=== PATIENT | male | born 1940 | race Caucasian/White ===

== ENCOUNTER 2019-01-18 10:36 | Inpatient (IN) ==
--- NOTE | 2018-11-17 16:25 | PAT Medication Instructions ---
Medication Instructions Date of Service November 17, 2018 Home Medications kuaizjp-kohnwumokltis-fyzqavxe 2 tab PO BID atorvastatin [Lipitor] 40 mg PO QAM candesartan 16 mg PO QAM docusate sodium [Colace] 100 mg PO QAM finasteride 5 mg PO QAM metformin 850 mg PO QAM metoprolol succinate 25 mg PO QAM ranitidine HCl 150 mg PO QAM ASK your surgeon for instructions [id number]-wifuxcjbncbwq-yacjnntr 2 tab PO BID DO NOT take the morning of surgery candesartan 16 mg PO QAM docusate sodium [Colace] 100 mg PO QAM finasteride 5 mg PO QAM metformin 850 mg PO QAM Take morning of surgery With a small sip of water, OTHERWISE NOTHING TO EAT OR DRINK AFTER MIDNIGHT: atorvastatin [Lipitor] 40 mg PO QAM metoprolol succinate 25 mg PO QAM ranitidine HCl 150 mg PO QAM Other Notes If you have any questions please call us at [phone] or [phone] or or [phone]
--- NOTE | 2018-11-18 13:46 | Anesthesiology Consultation ---
Date of Service November 18, 2018 Assessment & Plan (1) Encounter for pre-operative examination: Chart Review Chart Review: Acceptable Risk for Surgery and Patient seen in Pre Admission Testing Teaching & Discussion Instructed NPO after midnight before surgery, except medications with 15 cc of water. Medication instructions provided according to the PAT guidelines. History Surgery Operation Date: 12/09/18 07:45 Proposed Procedures p L3-L5 Decompression and Fusion - Nik Viera, Height/Weight Height: 5 ft 10 in Weight: 108.7 kg Allergies Allergy/AdvReac Type Severity Reaction Status Date / Time No Known Allergies Allergy Verified 11/11/18 07:45 Medications Home Medications Medication Instructions Recorded Confirmed Last Taken ihrmetq-pndzbevegickq-mqpjfdkk 2 tab PO BID 11/11/18 11/11/18 Unknown [Excedrin Extra Strength] atorvastatin [Lipitor] 40 mg PO QAM 11/11/18 11/11/18 Unknown candesartan 16 mg PO QAM 11/11/18 11/11/18 Unknown docusate sodium [Colace] 100 mg PO QAM 11/11/18 11/11/18 Unknown finasteride 5 mg PO QAM 11/11/18 11/11/18 Unknown metformin 850 mg PO QAM 11/11/18 11/11/18 Unknown metoprolol succinate 25 mg PO QAM 11/11/18 11/11/18 Unknown ranitidine HCl 150 mg PO QAM 11/11/18 11/11/18 Unknown Past Medical History Medical History BPH (benign prostatic hyperplasia) Diabetes mellitus, type 2 Essential tremor right arm- states has not seen neurologist but told by PCP may have the beginning stages of Parkinson GERD (gastroesophageal reflux disease) High cholesterol Hypertension Spinal stenosis Trigger finger of right hand Weakness both legs - more in right than left- no issues with walking, but has trouble getting up from chair Past Surgical History Surgical History H/O hand surgery Trigger finger release 02/2018 Hx of tonsillectomy Hx of umbilical hernia repair Past Anesthesia History No Hx of Anesthesia Complications and No Family Hx of Anesthesia Complications History of PONV No Motion Sickness Screening History of Motion Sickness: No Social History Smoking Status: Former smoker tobacco type: cigars Do You Dip or Chew Tobacco: No Smoking End Date: 1972 Hx Alcohol Use: Yes Alcohol type: beer alcohol intake frequency: 0-2 drinks per day (2/day) Hx Substance Use: No Exercise / Class Metabolic Activity III < 4 Walking/Shop/Light housework (Walks 50yards to mailbox BID, denies CP or SOB with ambulation) Review of Systems Pt denies any recent chest pain, shortness of breath, palpitations, cough, fever or URI. Physical Exam Vital Signs BP: 124/75 P: 66bpm SPO2: 96% RA T: 97.7 F R: 18 Constitutional + obese RUE/hand continuous tremor. ENMT Mouth: + dental restorations (crown); no chipped teeth and no loose teeth Thyromental Distance: > or= 3.5 Finger Breadths (3.5) Mallampati Class: III Neck + short neck, + thick neck, + limited neck extension and + facial hair (mustache) Respiratory normal respiratory effort Auscultation: lungs clear to auscultation bilaterally Cardiovascular Rate/Rhythm: regular rate and regular rhythm Heart Sounds: no murmur Vessels: no carotid bruit Testing Electrocardiogram Date: 02/24/18 Findings: + SB @ (59) Left axis deviation. Inferior infarct, age undetermined. No significant change from EKG 08/13/16. Chest X-Ray Date: 02/24/18 Findings: + NAD Laboratory Results 11/18/18 14:03 11/18/18 14:03 Blood Type O Positive 11/18/18 14:03 Antibody Screen NEGATIVE 11/18/18 14:03 PT 10.8 Seconds (9.0-12.0) 11/18/18 14:03 INR 1.1 (0.9-1.1) 11/18/18 14:03 APTT 27.4 Seconds (21.0-31.0) 11/18/18 14:03 Hemoglobin A1c 6.2 % (4.5-5.6) H 11/18/18 14:03 Urine Color Yellow 11/18/18 14:03 Urine Appearance Clear (Clear) 11/18/18 14:03 Urine pH 5.0 (4.5-7.5) 11/18/18 14:03 Ur Specific [place] 1.013 (1.000-1.030) 11/18/18 14:03 Urine Protein Negative (Negative) 11/18/18 14:03 Urine Glucose (UA) Negative (Negative) 11/18/18 14:03 Urine Ketones Negative (Negative) 11/18/18 14:03 Urine Nitrite Negative (Negative) 11/18/18 14:03 Ur Leukocyte Esterase Negative (Negative) 11/18/18 14:03
[2018-11-18 14:35] LABS: Basophils # (auto) 0.02 K/uL (0-0.2); Basophils % (auto) 0.2 %; Eosinophils # (auto) 0.18 K/uL (0-0.5); Hematocrit (blood only) 46.5 % (42-52); Hemoglobin 16.2 g/dL (14.0-18.0); Immature Granulocytes # (auto) 0.03 K/uL (0.00-0.02); Immature Granulocytes % (auto) 0.3 %; Lymphocytes # (auto) 2.05 K/uL (1.2-3.4); Lymphocytes % (auto) 22.2 %; Mean Corpuscular Hgb Conc 34.8 g/dL (32-36); Mean Corpuscular Volume 89.9 fL (80-100); Mean Platelet Volume 8.7 fL (7.4-10.4); Monocytes # (auto) 1.09 K/uL (0.11-0.59); Monocytes % (auto) 11.8 %; Neutrophils # (auto) 5.85 K/uL (1.4-6.5); Neutrophils % (auto) 63.5 %; Platelet Count 263 K/uL (130-400); RDW Coefficient of Variation 13.6 % (11.5-14.5); RDW Standard Deviation 44.9 fL (36.4-46.3); Red Blood Count 5.17 M/uL (4.7-6.1); White Blood Count 9.22 K/uL (4.8-10.8)
[2018-11-18 14:42] LABS: BUN Creatinine Ratio 10.1 (10-20); Calcium 9.7 mg/dl (8.5-10.1); Creatinine Clr Calc Pharmacy 85.6 ml/min; Est GFR (Non-African American) 81.1; Potassium 4.4 mmol/L (3.5-5.1)
[2018-11-18 14:45] LABS: INR 1.1 (0.9-1.1); Partial Thromboplastin Time 27.4 Seconds (21.0-31.0); Prothrombin Time 10.8 Seconds (9.0-12.0)
[2018-11-18 15:52] LABS: Appearance Urine Clear (Clear); Bilirubin Urine Negative (Negative); Blood Urine Negative (Negative); Color Urine Yellow; Glucose Urine UA Negative (Negative); Ketones Urine Negative (Negative); Leukocyte Esterase Urine Negative (Negative); Nitrite Urine Negative (Negative); Protein Urine Negative (Negative); Specific Gravity Urine 1.013 (1.000-1.030); Urobilinogen Urine Negative (Negative)
[2018-11-19 07:08] LABS: Estimated Average Glucose 131 mg/dl; Hemoglobin A1C 6.2 % (4.5-5.6)
[~2019-01-18 10:36] MED LIST: ACETAMINOPHEN 500 MG TAB PO SCH; CEFAZOLIN 2000MG 2,000 MG/15 ML SYR IV SCH; CeleBREX 200 MG CAP PO SCH; GABAPENTIN 300 MG PO SCH; HYDROmorphone INJ 2 MG/ML SYR/VIAL ONE; LR 15ML/HR IV SCH; MIDAZOLAM HCL 1 MG/ML 2ML VIAL ONE; fentaNYL citrate 100 MCG/2 ML VIAL ONE
[2019-01-18] MEDS ORDERED: ATROPINE SULFATE 0.1 MG/ML 10ML SYR IV PRN (10:54)
[2019-01-18] MEDS ORDERED: PHENYLEPHRINE 100MCG/ML 5ML SYR IV PRN (10:54)
[2019-01-18] MEDS ORDERED: ONDANSETRON INJ 2 MG/ML 2 ML VIAL IV PRN ×2 (10:54→16:39)
[2019-01-18] MEDS ORDERED: HYDROmorphone INJ 1 MG/ML SYRINGE IV PRN (10:54)
[2019-01-18] MEDS ORDERED: ePHEDrine sulfate 50 MG/ML AMP IV PRN (10:54)
--- NOTE | 2019-01-18 12:16 | History & Physical Bridge Note ---
Date of Service January 18, 2019 History & Physical Bridge Note I have examined the patient, reviewed the History & Physical and in the interval since the performance of the History & Physical I have noted the following changes of clinical significance: no changes noted
--- NOTE | 2019-01-18 12:18 | History & Physical Report ---
Date of Service January 18, 2019 Assessment & Plan (1) Spinal stenosis, lumbar region with neurogenic claudication: L3-L5 decompression and fusion Present on Admission?: Yes History of Present Illness Chief Complaint: Back and bilateral leg pain Primary Care Provider: Jerry Saravia MD This is a 78-year-old male that presents with chronic persistent back and leg pain and is here for surgical intervention. Allergies Allergy/AdvReac Type Severity Reaction Status Date / Time No Known Allergies Allergy Verified 01/18/19 11:15 Home Medications Home Medications Medication Instructions Recorded Confirmed Type sfbqsnp-crlsrmtlfrmis-zakzxblx 2 tab PO BID 11/11/18 01/18/19 History [Excedrin Extra Strength] atorvastatin [Lipitor] 40 mg PO QAM 11/11/18 01/18/19 History candesartan 16 mg PO QAM 11/11/18 01/18/19 History docusate sodium [Colace] 100 mg PO QAM 11/11/18 01/18/19 History finasteride 5 mg PO QAM 11/11/18 01/18/19 History metformin 850 mg PO QAM 11/11/18 01/18/19 History metoprolol succinate 25 mg PO QAM 11/11/18 01/18/19 History ranitidine HCl 150 mg PO QAM 11/11/18 01/18/19 History Past Med/Surg History Medical History Fracture of finger of right hand (Acute) BPH (benign prostatic hyperplasia) Diabetes mellitus, type 2 Essential tremor right arm- states has not seen neurologist but told by PCP may have the beginning stages of Parkinson GERD (gastroesophageal reflux disease) Hand fracture, right 12/04/2018. CURRENTLY IN A BRACE. GOING TO SEE ORTHO SURGEON 01/17/19 High cholesterol Hypertension Spinal stenosis Trigger finger of right hand Weakness both legs - more in right than left- no issues with walking, but has trouble getting up from chair Surgical History Hx of tonsillectomy Hx of umbilical hernia repair H/O hand surgery Trigger finger release 02/2018 Social History Preferred Language: Turkmen Communication Ability: Effective Travel Manager Required: No Beliefs That Will Affect Care: None Current Living Situation: Spouse Other Information That Helps Us Care for You: No Feels Safe at Home: Yes Safety Concerns: Feels Safe At This Time Smoking Status: Former smoker Tobacco Type: cigars Do You Dip or Chew Tobacco: No Smoking End Date: 1972 Second Hand Exposure: No Tobacco Cessation Education Requested by Patient: No Hx Alcohol Use: Yes Alcohol type: beer Hx Substance Use: No Physical Exam Vital Signs (Past 24 Hours): Last Vital Signs Temp 36.6 C 01/18/19 11:32 Pulse 72 01/18/19 11:32 Resp 22 01/18/19 11:32 BP 155/74 H 01/18/19 11:32 Pulse Ox 95 01/18/19 11:32 Physical Exam: Patient is alert and oriented neurologically intact.
[2019-01-18] MEDS ORDERED: BACITRACIN INJ 50,000 UNIT VIAL ONE (12:32)
[2019-01-18] MEDS ORDERED: BUPIVACAINE/EPINEPHRINE 0.5% MPF 1:200,000 30 ML VIAL ONE (12:32)
[2019-01-18] MEDS ORDERED: PROPOFOL IV EMULSION 10 MG/ML 20 ML VIAL IV ONE (12:50)
[2019-01-18] MEDS ORDERED: DEXAMETHASONE SOD INJ 4 MG/ML VIAL ONE (12:50)
[2019-01-18] MEDS ORDERED: LIDOCAINE HCL 2% 2 ML VIAL/AMP(20MG/ML) INFIL ONE (12:50)
[2019-01-18] MEDS ORDERED: ROCURONIUM BROMIDE 10 MG/ML 5 ML VIAL ONE (12:50)
[2019-01-18] MEDS ORDERED: NEOSTIGMINE METHYLSULFATE 1 MG/ML 10ML VIAL ONE ×2 (12:50→15:35)
[2019-01-18] MEDS ORDERED: ONDANSETRON INJ 2 MG/ML 2 ML VIAL ONE ×2 (12:50→15:35)
[2019-01-18] MEDS ORDERED: GLYCOPYRROLATE 0.2 MG/ML VIAL ONE ×2 (12:50→15:35)
[2019-01-18] MEDS ORDERED: fentaNYL citrate 100 MCG/2 ML VIAL ONE ×3 (13:21→14:11)
[2019-01-18] MEDS ORDERED: FLOSEAL HEMOSTATIC MATRIX 10ML TOP ONE (13:53)
--- NOTE | 2019-01-18 15:08 | Operative Report ---
Post Operative Report Pre & Post Diagnosis Operation Date: 01/18/19 12:15 Pre-Op Diagnosis: Spinal Stenosis, Lumbar Region with Neurogenic Claudication Obesity Post-Op Diagnosis: Same Procedure Operation Date: 01/18/19 12:15 Actual Procedures #1 lumbar decompression with bilateral medial facetectomies and foraminotomies L2-3 L3-4 L4-5 per #2 posterior spinal fusion L3-4 L4-5 per #3 placement posterior instrumentation L3-4 L4-5. #4 interbody fusion L4-5. #5 placement of peek cage 9 x 26 mm at L4-5. #6 placement of local autograft in the posterior lateral gutters. #7 placement infuse collagen sponge, mass graft in the posterior lateral gutters ostial amp and interbody space. Surgeon Nik Viera DO [employer] Eliseo Estimated Blood Loss 250 Findings See Below Patient is a 5 foot 10 inches tall 107 kg with a BMI of 34. The patient's body habitus created significant technical difficulty throughout the procedure requiring our deepest retractors and longus Kerrisons to complete. His body habitus added at least 40% increase in operative time. Specimens None Indications This is a 78-year-old male who presents with back and leg pain. After failing extensive course of nonoperative care like to go the above-mentioned procedure. Description of Procedure Patient was met with identified and informed consent obtained. He was then taken to the operative suite underwent intubation and placed in a prone position the John table on top of the Bishop frame. All bony prominences well-padded eyes inspected to ensure no external pressure placed upon the peer at this point the lumbar spine was prepped and draped in the normal sterile fashion. Sharp dissection with the assistance of Bovie cautery was performed down to and exposing the lamina and transverse processes of L3-L4 bilaterally. From a caudal to cephalad fashion complete laminectomy of L4 L3 and partial laminectomy of L2 was performed including bilateral medial facetectomies and foraminotomies addressing severe spinal stenosis. Pedicle screws were then placed in L3-L4-L5 bilaterally with assistance of fluoroscopy and appropriate size mark placed. By way of a transforaminal approach on the right complete discectomy will 4 5 was performed in plate graded to subcortical bleeding bone and a 9 x 26 mm peek cage filled with osteo-amp bone graft tapped in position. The rods were then locked in final position bilaterally. The transverse processes of L3-L4 fiber to subcortical bleeding bone. Infuse collagen sponge mass graft local autograft placed in the posterior lateral gutters. 15 round ZAKI drain inserted. The incision was then closed with 1 Vicryl in the fascia 2-0 Vicryl substantially and 4-0 Monocryl for final skin closure. Steri-Strips dressings placed. Patient will continue PACU stable disc. Please note Liz Gomes present at the entire procedure involved in patient positioning complex portions of the surgery and final skin closure. Lastly spinal cord monitoring was utilized throughout the procedure and no changes noted. I attest to the content of the Intraoperative Record and any orders documented therein. Any exceptions are noted below.
--- NOTE | 2019-01-18 15:15 | Fluoroscopy Report ---
FL lumbar spine 2-3V CLINICAL HISTORY: L3-L5 DECOMPRESSION AND FUSION COMPARISON STUDY: None. FLUOROSCOPY TIME: 14 seconds. FLUOROSCOPIC IMAGES: 2. FINDINGS: Patient is status post L4-L5 discectomy with interbody spacer placement. Posterior decompre ssion is noted with bilateral pedicle screws at the L3, L4 and L5 levels. Hardware is intact IMPRESSION: Postoperative findings consistent with L4-L5 discectomy and posterior decompression with L3-L5 bilateral pedicle screw fusion. Electronically signed by: Daryn Echevarria M.D. 01/18/2019 3:13 PM
[2019-01-18] MEDS: fentaNYL citrate 100 MCG/2 ML VIAL IV PRN ×4 (15:47→16:02)
[2019-01-18] MEDS ORDERED: HYDROmorphone INJ 1 MG/ML SYRINGE ONE (16:05)
--- NOTE | 2019-01-18 16:20 | Anesthesiology Progress Note ---
Date of Service January 18, 2019 Anesthesia Post Procedure Vital Signs Vital Signs: Temp Pulse Pulse Resp BP Pulse Ox 01/18/19 16:15 36.7 C 66 11 L 126/73 94 01/18/19 16:05 66 11 L 126/77 93 01/18/19 15:55 67 13 134/78 94 01/18/19 15:45 68 15 150/86 H 95 01/18/19 15:35 69 15 152/84 H 94 01/18/19 15:25 36.9 C 73 16 149/80 H 93 01/18/19 11:32 36.6 C 72 22 155/74 H 95 Pain Intensity Lower Back: Pain Intensity: 6 Transfer of Care Handoff Completed per policy Notes Mental Status: alert / awake / arousable Patient Amnestic to Procedure: Yes Nausea / Vomiting: adequately controlled Pain: adequately controlled Airway Patency, RR, SpO2: stable & adequate BP & HR: stable & adequate Hydration State: stable & adequate Anesthetic Complications: no major complications apparent
[2019-01-18] MEDS ORDERED: ALUMINUM/MAGNESIUM SUSP 30 ML UDC PO PRN (16:39)
[2019-01-18] MEDS ORDERED: LORazepam 0.5 MG TAB PO PRN (16:39)
[2019-01-18] MEDS ORDERED: ACETAMINOPHEN 500 MG TAB PO PRN (16:39)
[2019-01-18] MEDS ORDERED: DO NOT ADMINISTER FLU VACCINE PRN (16:39)
[2019-01-18] MEDS ORDERED: METOCLOPRAMIDE HCL INJ 5 MG/ML 2 ML VIAL IV PRN (16:39)
[2019-01-18] MEDS ORDERED: LORazepam 0.5 MG/1 ML VIAL IV PRN (16:39)
[2019-01-18] MEDS ORDERED: PROMETHAZINE HCL 12.5 MG in SODIUM CHLORIDE 0.9% 50 ML IV PRN (16:39)
[2019-01-18] MEDS ORDERED: FAMOTIDINE 20 MG TAB PO PRN (16:39)
[2019-01-18] MEDS ORDERED: ONDANSETRON 4 MG TAB PO PRN (16:39)
[2019-01-18] MEDS ORDERED: HYDROmorphone INJ 0.5 MG/0.5 ML SYR IV PRN (16:39)
[2019-01-18] MEDS ORDERED: SOD PHOSPHATE/SOD BIPHOSPHATE ENEMA 132 ML BTL PR PRN (16:39)
[2019-01-18] MEDS ORDERED: MAGNESIUM HYDROXIDE SUSP 30 ML UDC PO PRN (16:39)
[2019-01-18] MEDS ORDERED: DO NOT ADMINISTER PNEUMOCOCCAL VACCINE PRN (16:39)
[2019-01-18] MEDS ORDERED: ACETAMINOPHEN 1,000 MG/100 ML VIAL IV PRN (16:39)
[2019-01-18] MEDS ORDERED: BISACODYL 10 MG SUPP PR PRN (16:39)
[2019-01-18] MEDS: SODIUM CHLORIDE 0.9% 1000ML 1,000 ML IV SCH ×2 (17:19→23:32)
[2019-01-18] MEDS: KETOROLAC TROMETHAMINE 15 MG/ML VIAL IV SCH ×2 (18:49→23:35)
[2019-01-18] MEDS: CEFAZOLIN 2000MG 2,000 MG/15 ML SYR IV SCH (20:11)
[2019-01-18] MEDS: DOCUSATE SODIUM/SENNA 50/8.6MG TAB PO SCH (20:13)
[2019-01-18] MEDS: [UNRECOGNIZED DRUG - REMARK] SCH (23:33)
[2019-01-19] MEDS: CEFAZOLIN 2000MG 2,000 MG/15 ML SYR IV SCH (04:46)
[2019-01-19 05:55] LABS: Basophils # (auto) 0.01 K/uL (0-0.2); Basophils % (auto) 0.1 %; Eosinophils # (auto) 0.03 K/uL (0-0.5); Eosinophils % (auto) 0.3 %; Hematocrit (blood only) 35.8 % (42-52); Hemoglobin 12.2 g/dL (14.0-18.0); Immature Granulocytes # (auto) 0.03 K/uL (0.00-0.02); Immature Granulocytes % (auto) 0.3 %; Lymphocytes # (auto) 1.76 K/uL (1.2-3.4); Lymphocytes % (auto) 15.2 %; Mean Corpuscular Hgb Conc 34.1 g/dL (32-36); Mean Corpuscular Volume 88.4 fL (80-100); Mean Platelet Volume 8.7 fL (7.4-10.4); Monocytes # (auto) 1.44 K/uL (0.11-0.59); Monocytes % (auto) 12.4 %; Neutrophils # (auto) 8.34 K/uL (1.4-6.5); Neutrophils % (auto) 71.7 %; Platelet Count 202 K/uL (130-400); RDW Coefficient of Variation 14.5 % (11.5-14.5); RDW Standard Deviation 47.3 fL (36.4-46.3); Red Blood Count 4.05 M/uL (4.7-6.1); White Blood Count 11.61 K/uL (4.8-10.8)
[2019-01-19] MEDS: KETOROLAC TROMETHAMINE 15 MG/ML VIAL IV SCH ×2 (06:03→11:25)
[2019-01-19] MEDS: POLYETHYLENE (MIRALAX) 17 GM PACK PO SCH ×4 (06:03→23:39)
[2019-01-19] MEDS: SODIUM CHLORIDE 0.9% 1000ML 1,000 ML IV SCH (06:16)
[2019-01-19 06:39] LABS: BUN Creatinine Ratio 11.3 (10-20); Calcium 8.2 mg/dl (8.5-10.1); Creatinine Clr Calc Pharmacy 81.1 ml/min; Est GFR (African American) 89.8; Est GFR (Non-African American) 77.4; Potassium 4.4 mmol/L (3.5-5.1)
--- NOTE | 2019-01-19 08:07 | Anesthesiology Progress Note ---
Date of Service January 19, 2019 Anesthesia Post Procedure Vital Signs Vital Signs: Temp Pulse Pulse Pulse Resp BP BP 01/19/19 06:47 36.5 C 58 L 18 117/70 01/19/19 04:15 36.4 C L 57 L 18 109/68 01/18/19 22:59 36.1 C L 65 16 109/66 01/18/19 20:06 36.4 C L 72 16 111/70 01/18/19 18:52 36.3 C L 76 16 119/71 01/18/19 17:44 36.7 C 81 18 145/84 H 01/18/19 17:12 36.4 C L 75 16 125/77 01/18/19 16:25 68 12 128/75 01/18/19 16:15 36.8 C 66 11 L 126/73 01/18/19 16:05 66 11 L 126/77 01/18/19 15:55 67 13 134/78 01/18/19 15:45 68 15 150/86 H 01/18/19 15:35 69 15 152/84 H 01/18/19 15:25 36.9 C 73 16 149/80 H 01/18/19 11:32 36.6 C 72 22 155/74 H Pulse Ox 01/19/19 06:47 96 01/19/19 04:15 94 01/18/19 22:59 94 01/18/19 20:06 96 01/18/19 18:52 97 01/18/19 17:44 94 01/18/19 17:12 93 01/18/19 16:25 93 01/18/19 16:15 94 01/18/19 16:05 93 01/18/19 15:55 94 01/18/19 15:45 95 01/18/19 15:35 94 01/18/19 15:25 93 01/18/19 11:32 95 Pain Intensity Lower Back: Pain Intensity: 0 Notes Mental Status: alert / awake / arousable and participated in evaluation Patient Amnestic to Procedure: Yes Nausea / Vomiting: adequately controlled Pain: adequately controlled Airway Patency, RR, SpO2: stable & adequate BP & HR: stable & adequate Hydration State: stable & adequate Anesthetic Complications: no major complications apparent
[2019-01-19] MEDS: ATORVASTATIN 40 MG TAB PO SCH (08:41)
[2019-01-19] MEDS: DOCUSATE SODIUM 100 MG CAP PO SCH (08:42)
[2019-01-19] MEDS: METOPROLOL SUCC 25MG EXT REL TAB PO SCH (08:42)
[2019-01-19] MEDS: FINASTERIDE 5 MG TAB PO SCH (08:42)
[2019-01-19] MEDS: [UNRECOGNIZED DRUG - REMARK] SCH ×3 (08:43→23:39)
[2019-01-19] MEDS: TRAMADOL HCL 50 MG TABLET PO PRN ×2 (09:48→15:28)
--- NOTE | 2019-01-19 11:14 | Orthopedic Progress Note ---
Date of Service January 19, 2019 Assessment & Plan (1) Spinal stenosis, lumbar region with neurogenic claudication: This time we will continue physical therapy advance his bowel regimen. We are considering home health upon discharge. Present on Admission?: Yes Subjective Back pain controlled leg symptoms improved. Physical Exam Physical Exam: Patient is in the chair at the bedside. Neurologically intact. Results & Data Vital Signs (Past 12 Hours) Vital Signs Temp Pulse Pulse Resp BP Pulse Ox 01/19/19 11:02 36.7 C 64 18 124/72 96 01/19/19 06:47 36.5 C 58 L 18 117/70 96 01/19/19 04:15 36.4 C L 57 L 18 109/68 94
[2019-01-19] MEDS: OXYCODONE HCL IR 5 MG TAB (IMMEDIATE RELEASE) PO PRN (18:40)
[2019-01-19] MEDS: DOCUSATE SODIUM/SENNA 50/8.6MG TAB PO SCH (21:02)
[2019-01-20] MEDS: OXYCODONE HCL IR 5 MG TAB (IMMEDIATE RELEASE) PO PRN (00:39)
[2019-01-20] MEDS: POLYETHYLENE (MIRALAX) 17 GM PACK PO SCH ×3 (06:01→19:09)
[2019-01-20] MEDS: [UNRECOGNIZED DRUG - REMARK] SCH ×2 (08:22→18:16)
[2019-01-20] MEDS: METOPROLOL SUCC 25MG EXT REL TAB PO SCH (08:22)
[2019-01-20] MEDS: ATORVASTATIN 40 MG TAB PO SCH (08:22)
[2019-01-20] MEDS: DOCUSATE SODIUM 100 MG CAP PO SCH (08:22)
[2019-01-20] MEDS: FINASTERIDE 5 MG TAB PO SCH (08:23)
--- NOTE | 2019-01-20 15:40 | Orthopedic Progress Note ---
Date of Service January 20, 2019 Assessment & Plan (1) Spinal stenosis, lumbar region with neurogenic claudication: At this time we will continue physical therapy as tolerated assess his progress. He may be candidate for rehab versus home health. Present on Admission?: Yes Subjective Back pain controlled leg pain improved. Physical Exam Physical Exam: Patient is in the chair at the bedside. Appears comfortable. Is good strength testing. Results & Data Vital Signs (Past 12 Hours) Vital Signs Temp Pulse Resp BP BP Pulse Ox 01/20/19 15:03 36.8 C 69 17 134/73 94 01/20/19 07:15 36.6 C 71 17 153/77 H 94
[2019-01-20] MEDS: DOCUSATE SODIUM/SENNA 50/8.6MG TAB PO SCH (19:09)
[2019-01-21] MEDS: [UNRECOGNIZED DRUG - REMARK] SCH ×4 (00:14→23:13)
[2019-01-21] MEDS: POLYETHYLENE (MIRALAX) 17 GM PACK PO SCH ×5 (00:16→23:13)
[2019-01-21] MEDS: DOCUSATE SODIUM 100 MG CAP PO SCH (08:37)
[2019-01-21] MEDS: FINASTERIDE 5 MG TAB PO SCH (08:38)
[2019-01-21] MEDS: METOPROLOL SUCC 25MG EXT REL TAB PO SCH (08:38)
[2019-01-21] MEDS: ATORVASTATIN 40 MG TAB PO SCH (08:38)
--- NOTE | 2019-01-21 08:41 | Orthopedic Progress Note ---
Date of Service January 21, 2019 Assessment & Plan (1) Spinal stenosis, lumbar region with neurogenic claudication: At this time we will continue physical therapy as tolerated assess his progress. I have spoken to his this morning. Plan is to continue with aggressive bowel regimen today. Also focus on physical therapy and transitions. Anticipate discharge home tomorrow. Maintain ZAKI drain in the interim. Supervising Physician Co-Signing Physician Notes Dr. Nik Viera Subjective He is passing flatus but no bowel movement. Yesterday physical therapy ambling 310 feet. He also reports he is yelling hallways. ZAKI drain output last shift was 30 cc. Back pain controlled leg pain improved. Review of Systems Review of Systems: All systems reviewed & are unremarkable except as noted in HPI & below Physical Exam Physical Exam: Alert and oriented x3. No acute distress Lumbar dressing is clean dry and intact. Calves are soft nontender bilaterally. Strength is 5/5 bilateral lower extremities. Results & Data Vital Signs (Past 12 Hours) Vital Signs Temp Pulse Resp BP Pulse Ox 01/21/19 07:12 36.5 C 64 17 130/74 95 01/20/19 22:50 37 C 71 18 153/76 H 95
[2019-01-21] MEDS: OXYCODONE HCL IR 5 MG TAB (IMMEDIATE RELEASE) PO PRN ×3 (09:46→20:00)
[2019-01-21] MEDS: DOCUSATE SODIUM/SENNA 50/8.6MG TAB PO SCH (19:58)
[2019-01-22] MEDS: OXYCODONE HCL IR 5 MG TAB (IMMEDIATE RELEASE) PO PRN ×2 (02:07→09:09)
[2019-01-22] MEDS ORDERED: COUGH DROP (SUGAR FREE) LOZ 24 LOZ/1 BOX BUCCAL PRN (02:12)
[2019-01-22] MEDS: POLYETHYLENE (MIRALAX) 17 GM PACK PO SCH ×2 (06:23→13:02)
--- NOTE | 2019-01-22 08:43 | Discharge Summary ---
Date of Service January 22, 2019 Admission HPI Per Admitting Provider This is a 78-year-old male that presents with chronic persistent back and leg pain and is here for surgical intervention. Admission Exam (Per Admitting) Constitutional WD/WN, vitals as above Eyes normal visual fine by confrontation ENMT external ear and nose normal, oropharynx normal Neck normal visual inspection Respiratory normal respiratory effort Cardiovascular Rate/Rhythm: regular rate Gastrointestinal (Abdomen) Inspection/Auscultation: abdomen normal to inspection Musculoskeletal no cyanosis or clubbing, extremities motor strength 5/5 Skin no rashes, warm and dry Neurologic patellar DTR's 2+ bilat, sensation intact normal touch/pain/proprioception, deep tendon reflexes 2+ bilaterally and moves all extremities Psychiatric A+Ox3, euthymic affect Discharge Data Consultations 01/18/19 16:39 Consult Case Management - Discharge Planning Routine Procedures Performed Operation Date: 01/18/19 12:15 Actual Procedures p L3-L5 Decompression and Fusion, Application of OsteoAMP; implant of interbody cage at L4-L5 and Bone Morphogenetic Protein with Spinal Cord Monitoring(Not A pplicable) - Nik Viera, Hospital Course (1) Spinal stenosis, lumbar region with neurogenic claudication: Patient had an uncomplicated postoperative course. Pain is been controlled. ZAKI drain diminishing daily. Making progress in physical therapy. Yesterday, postoperative day 3, he was ambling 700 feet. He reports he is also ablating in the hallways. He is passing flatus and had a bowel movement. Lab values have been stable. He is discharged home with home health on postoperative day 4. Discharge Instructions ACTIVITY RECOMMENDATIONS: SELF CARE INSTRUCTIONS AFTER THORACIC/LUMBAR FUSIONS 1. You may walk to your tolerance. It is good exercise for your legs and back. Expect some back and intermittent leg aches and pains. 2. You may perform "counter-top" level activities (make a sandwich, [place] with a project, etc.). 3. No bending or lifting of more than 10 pounds or back twisting of any nature (roll like a log when turning in bed). 4. You may ride in a car for 20-30 minutes at a time. No driving until after your first visit with your doctor. 5. Frequent changes of position and restricting sitting to 30 minutes at a time will help limit the amount of back spasms and stiffness you may experience. 6. You may discontinue the use of ambulatory aids (cane, crutches, etc.) once your strength and confidence allow. 7. You may processing operator the shower and let water strike your incision when you arrive home at least once daily. Do not take a tub bath, sit in a hot tub or go into a swimming pool until after your first recheck in the office. SPECIAL CARE INSTRUCTIONS: VERY IMPORTANT TO READ AND REVIEW A. Your surgical incision has been closed with a cosmetic suture under the skin that will dissolve in about 6 weeks. In 14 days, you can use a pair of clean scissors and cut the suture that is left outside of the skin at the ends of your incision. 1. The small skin tapes can be removed 7 days after surgery if they have not fallen off by that point. 2. You may keep the wound open to air as much as possible to promote healing after post-op day number 5 unless told otherwise by your doctor. 3. If you think the wound looks like it is becoming infected (redness or worsening drainage) and/or you are experiencing fever, chill or worsening back pain and muscle spasms, contact the office so that we may evaluate you as soon as possible. B. Complications are uncommon, but please contact us if you have any signs or symptoms of: 1. wound infection (fever higher than 102.5 degrees F, redness, separation of wound, drainage, or increasing pain from the incision) 2. blood clots in legs (pain, swelling, redness and warmth in legs) 3. urinary tract infection (fever higher than 102.5 degrees F, burning upon urination or increased frequency of urination) 4. nerve problems (inability to walk on your toes or heels, numbness, loss of bowel or bladder control) 5. any other symptoms that concern you C. Please call the office at if you have any concerns or questions about your operation or recovery. D. No smoking! Smoking drastically decreases the chance of a solid fusion. E. Do not take any anti-inflammatory medications (Indocin, Advil, Motrin, Aspirin, Naprosyn, etc.) as these may inhibit the chance of a solid fusion. Tylenol is okay to take for pain. MANAGING PAIN AFTER SPINAL SURGERY 1. Narcotic medication is intended for short-term use and will be provided for surgical pain. Surgical pain usually lasts for a period of 4-6 weeks. Narcotic medication includes Percocet, Vicodin, Darvocet, Tylenol #3 or Lortab. 2. Longer-term pain is more appropriately treated with non-narcotic medication such as Tylenol ES. 3. Muscle spasm is not appropriately treated with narcotics. Muscle relaxers such as Soma, Flexeril or Skelaxin can be used along with Tylenol ES. 4. Remember that we all live with some "aches and pains". This is not unusual or uncommon after an injury or as we get older. a. Back pain is expected and may include muscle spasms for 4 to 6 weeks after surgery. The pain should gradually improve. If the pain worsens for no apparent reason, please contact the office. b. Intermittent leg pain may also be experienced and should not be concerned about unless it worsens for no apparent reason. If so, please contact the office. 5. We will provide appropriate medication within the normal guidelines of their prescribed use. We will also be very cautious and aware of potential abuse and extended duration of patients' medication needs. a. Pain medications are for your comfort and to assist with sleep and rest so that the tissue can heal. They are not provided in order to return to normal activity and should not be used through the day. To do so or worsening pain at night can result from ongoing tissue damage and development of tolerance to the prescribed medicine. 6. Please allow 2-3 days to process refills. Prescriptions will not be mailed but must be picked up at the office. FOLLOW UP VISIT: Keep your scheduled follow-up appointment. Any questions, please call the office at . Supervising Physician Co-Signing Physician Notes Dr. Nik Viera
[2019-01-22] MEDS: ATORVASTATIN 40 MG TAB PO SCH (09:09)
[2019-01-22] MEDS: DOCUSATE SODIUM 100 MG CAP PO SCH (09:10)
[2019-01-22] MEDS: METOPROLOL SUCC 25MG EXT REL TAB PO SCH (09:10)
[2019-01-22] MEDS: FINASTERIDE 5 MG TAB PO SCH (09:10)
[2019-01-22] MEDS: [UNRECOGNIZED DRUG - REMARK] SCH (09:11)
== END 2019-01-22 14:40 | disposition home health service (06) | DRG 455 ==
LOC: ASU 10:36 → 3E 15:12